=== PATIENT | female | born 1995 | race Caucasian/White ===

== ENCOUNTER → 2020-02-17 13:37 | Outpatient (CLI) | payer SELFPAY ==
[2020-02-17 14:12] LABS: Final Volume 0.5 mL; Initial Volume 1.2 mL; Semen 30 min. Liquification? Yes
== END ==
PROVIDERS: PCP Registered Nurse Diabetes Educator; Referring Provider Obstetrics & Gynecology; Visit Provider Obstetrics & Gynecology
DX: N97.9 Female infertility, unspecified (principal)
CPT/HCPCS: 58323

== ENCOUNTER → 2020-04-14 10:15 | Outpatient (CLI) | payer OTHER, SELFPAY ==
[2020-04-14 11:28] LABS: Final Volume 0.5 mL; Semen 30 min. Liquification? Yes
== END ==
PROVIDERS: PCP Registered Nurse Diabetes Educator; Referring Provider Obstetrics & Gynecology; Visit Provider Obstetrics & Gynecology
DX: N97.9 Female infertility, unspecified (principal)
CPT/HCPCS: 58323